=== PATIENT | female | born 1935 | race Caucasian/White ===

== ENCOUNTER 2018-12-28 16:55 | Emergency (ER) | payer OTHER ==
[~2018-12-28] VITALS: Ht 160 cm; Wt 104.8 kg
[2018-12-28] MEDS ORDERED: ACYCLOVIR800 MG PO (17:03)
[2018-12-28] MEDS ORDERED: PREDNISONE20 MG PO (17:10)
[2018-12-28] MEDS ORDERED: EYE DROPS15 ML OD (17:10)
[2018-12-28 18:08] VITALS: BP 153/94
== END 2018-12-28 18:10 | disposition home or self-care (01) ==
LOC: ER 16:55
DX: G51.0 Bell's palsy (principal); Z87.891 Personal history of nicotine dependence; Z88.2 Allergy status to sulfonamides
CPT/HCPCS: 99283